=== PATIENT | male | born 1970 | race American Indian/Alaskan Native ===

== ENCOUNTER 2018-03-04 08:16 | Emergency (ER) | payer MEDICARE, OTHER ==
[2018-03-04 08:16] VITALS: BMI 56.8
[2018-03-04] MEDS ORDERED: Naproxen 550 mg Tab PO STA (08:31)
[2018-03-04 09:12] VITALS: BP 144/86; PULSE 68; RESP 18; TEMP 98.4; O2SAT 99
--- NOTE | 2018-03-04 09:25 | C.PDOC ---
History Of Present Illness 47-year-old male presents to the emergency department with complaints of right ankle pain. 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 Patient denies any direct trauma, rash, redness, sensory changes, calf pain. - HPI Time Seen by Provider: 03/04/18 08:17 Chief Complaint (Nursing): Trauma History Per: Patient History/Exam Limitations: no limitations Onset/Duration Of Symptoms: Hrs Injury Occurred (Timing): Just Before Arrival Severity: Moderate Past Medical History Reviewed: Historical Data, Nursing Documentation, Vital Signs Vital Signs: Last Vital Signs Temp 98.4 F 03/04/18 09:11 Pulse 68 03/04/18 09:11 Resp 18 03/04/18 09:11 BP 144/86 03/04/18 09:11 Pulse Ox 99 03/04/18 18:09 - Medical History PMH: HTN, Peripheral Edema, Sleep Apnea (POSITIVE SLEEP STUDY, NO C PAP) Surgical History: Endoscopy - [facility] Procedures ESOPHAGOGASTRODUODENOSCOPY [EGD] W/CLOSED BIOPSY (01/08/15) EXCISION OF STOMACH, PERCUTANEOUS ENDOSCOPIC APPROACH, VERT (06/17/15) INSPECTION OF UPPER INTESTINAL TRACT, ENDO (06/17/15) ROBOTIC ASSISTED PROCEDURE OF TRUNK, PERC ENDO APPROACH (06/17/15) Family History: States: No Known Family Hx - Social History Hx Alcohol Use: No Hx Substance Use: No Review Of Systems Constitutional: Negative for: Fever Respiratory: Negative for: Shortness of Breath Musculoskeletal: Positive for: Foot Pain. Negative for: Back Pain, Leg Pain Skin: Negative for: Rash Neurological: Negative for: Weakness, Numbness Physical Exam - Physical Exam Appears: Well, Non-toxic, Other (in mild discomfort) Skin: Normal Color, Warm, Dry, No Rash Head: Normacephalic Eye(s): bilateral: Normal Inspection Oral Mucosa: Moist Cardiovascular: Rhythm Regular Respiratory: Normal Breath Sounds, No Rales, No Rhonchi, No Wheezing Extremity: Tenderness (limited ROM due to pain, (+) diffuse TTP of right ankle) , No Calf Tenderness, Capillary Refill (< 2 sec all digits ), No Deformity, No Swelling, Other (no erythema, no rash) Extremity: Bilateral: Atraumatic, Normal Color And Temperature Pulses: Left Dorsalis Pedis: Normal, Right Dorsalis Pedis: Normal Neurological/Psych: Oriented x3, Normal Sensation ED Course And Treatment O2 Sat by Pulse Oximetry: 99 (RA) Pulse Ox Interpretation: Normal - Other Rad XR ankle X-Ray: Viewed By Me, Read By Radiologist Interpretation: Accession No. : [id number]. Patient Name / ID : KARIS STEINBERG E / [id number]. Exam Date : 03/04/2018 08:36:14 ( Approved ). Study Comment : Sex / Age : M / 47Y. Creator : Armando Lamb MD. Dictator : Aircraft Structure Mechanic : Leg Man : Armando Lamb MD. Approver2 : Report Date : 03/04/2018 10:13:11. My Comment : . PROCEDURE: Right Ankle Radiographs. HISTORY: RIGHT ANKLE PAIN. COMPARISON: None. FINDINGS: BONES: No evidence of acute displaced fracture nor dislocation. The osseous structures appear intact. Degenerative osteoarthritis. JOINTS: Degenerative osteoarthritis right tibiotalar articulation. There also degenerative osteoarthritic changes of the bones of the midfoot. SOFT TISSUES: There appears to be mild diffuse soft tissue swelling most pronounced medially. Findings nonspecific; rule out the cellulitis versus vascular etiology. OTHER FINDINGS: None. IMPRESSION: No evidence of acute displaced fracture nor dislocation. Multi articular degenerative osteoarthritis. Mild diffuse soft-tissue swelling ; rule out cellulitis versus vascular etiology. Progress Note: Xray of right ankle ordered and reviewed. Patient given PO Naprosyn. Patient's pain worsens with weight bearing, placed in acw wrap, air cast and given cructches and instruction by mobile service rv technician. 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 Reevaluation Time: 09:25 Reassessment Condition: Improved Disposition Counseled Patient/Family Regarding: Studies Performed, Diagnosis, Need For Followup, Rx Given - Disposition Referrals: Kimmy Virgen DPM [Non-Staff] - Disposition: HOME/ ROUTINE Disposition Time: 09:25 Condition: STABLE Additional Instructions: FOLLOW UP WITH YOUR PODATRIST WITHIN 1 WEEK USE MEDICATION NEEDED RETURN TO ER IF SYMPTOMS WORSEN Prescriptions: Naproxen 375 mg PO BID PRN #20 tablet PRN Reason: pain Instructions: Ankle Sprain (DC) Forms: [employer] (Polish), Work Excuse Print Language: PRYDEINIG - Clinical Impression Clinical Impression: Right ankle sprain, Osteoarth NOS-ankle - Scribe Statement The provider has reviewed the documentation as recorded by the Scribe (Herman Mendoza) All medical record entries made by the Scribe were at my direction and personally dictated by me. I have reviewed the chart and agree that the record accurately reflects my personal performance of the history, physical exam, medical decision making, and the department course for this patient. I have also personally directed, reviewed, and agree with the discharge instructions and disposition.
--- NOTE | 2018-03-04 10:14 | RAD ---
PROCEDURE: Right Ankle Radiographs. HISTORY: RIGHT ANKLE PAIN COMPARISON: None FINDINGS: BONES: No evidence of acute displaced fracture nor dislocation. The osseous structures appear intact. Degenerative osteoarthritis. JOINTS: Degenerative osteoarthritis right tibiotalar articulation. There also degenerative osteoarthritic changes of the bones of the midfoot. SOFT TISSUES: There appears to be mild diffuse soft tissue swelling most pronounced medially. Findings nonspecific; rule out the cellulitis versus vascular etiology. OTHER FINDINGS: None. IMPRESSION: No evidence of acute displaced fracture nor dislocation. Multi articular degenerative osteoarthritis. Mild diffuse soft-tissue swelling ; rule out cellulitis versus vascular etiology.
== END 2018-03-04 11:10 | disposition home or self-care (01) ==
LOC: C.ER 08:16
DX: S93.401A Sprain of unspecified ligament of right ankle, initial encounter (principal); X50.9XXA Other and unspecified overexertion or strenuous movements or postures, initial encounter; M19.071 Primary osteoarthritis, right ankle and foot